=== PATIENT | female | born 1955 | race Hispanic/Latino ===

== ENCOUNTER 2017-11-12 02:52 | Emergency (ER) | payer MEDICARE ==
[~2017-11-12] VITALS: Ht 165.1 cm; Wt 73.5 kg
[~2017-11-12 02:52] MED LIST: CIPRO500 MG PO; HUMULIN N100 UNITS/; LISINOPRIL10 MG PO; METFORMIN HCL1000 MG; TIZANIDINE HCL2 M1; TYLENOL WITH C1 EACH PO; VALTREX500 MG PO
[2017-11-12] MEDS ORDERED: DIPHENHYDRAMINE HCL 25 MG CAP PO ONE (03:30)
[2017-11-12] MEDS ORDERED: FAMOTIDINE 20 MG TAB PO ONE (03:30)
== END 2017-11-12 05:33 | disposition home or self-care (01) ==
LOC: ER 02:52
DX: L29.9 Pruritus, unspecified (principal); L24.5 Irritant contact dermatitis due to other chemical products; I10 Essential (primary) hypertension; E11.9 Type 2 diabetes mellitus without complications
CPT/HCPCS: 99282